=== PATIENT | male | born 1950 | race Two or more races ===

== ENCOUNTER 2020-02-06 06:27 | Day surgery (SDC) | payer OTHER ==
[~2020-02-06 06:27] MED LIST: CYMBALTA60 MG PO; INDERAL PO; LOTREL 5-20 MG1 CAP PO; SINGULAIR10 MG PO
[2020-02-06] MEDS ORDERED: PERCOCET 5-3251 EACH PO (15:30)
== END 2020-02-06 19:30 | disposition home or self-care (01) ==
LOC: CIR.AMB 06:27
PROVIDERS: ATTEND Surgery
DX: N52.8 Other male erectile dysfunction (principal); Z20.828 Contact with and (suspected) exposure to other viral communicable diseases
CPT/HCPCS: 54405; C1813